=== PATIENT | male | born 1975 | race Caucasian/White ===

== ENCOUNTER 2023-04-10 14:08 | Emergency (ER) | payer OTHER, SELFPAY ==
[2023-04-10 14:13] VITALS: BP 156/106; PULSE 86; RESP 20; TEMP 98.2; O2SAT 98
[2023-04-10] MEDS ORDERED: Adacel Vial IM ONE ×2 (14:28→14:29)
--- NOTE | 2023-04-10 14:29 | ERPHSYRPT ---
- History of Present Illness Time Seen by Provider: 04/10/23 14:16 Source: patient Exam Limitations: no limitations Patient Subjective Stated Complaint: Pt states "I hit my arm with a grinding wheel." Triage Nursing Assessment: Pt presented alert and oriented X 3, skin pwd. PT had a shirt wrapped around his left forearm. PT has laceration approx 7 cm x 2 cm noted to left forearm. no bleeding at this time. Physician History: 48-year-old male [id number] presented in the ER with chief complaint of laceration distal third left anterior forearm while working at home with a grinding wheel. There was bleeding initially, started applying pressure and currently no active spurting or oozing. No difficulty movements at the wrist/fingers. No tingling or numbness in the fingers. Unsure about tetanus status. No injury anywhere else. Patient has 3.0 cm superficial laceration. No obvious tendon injury visible. Intact movements at wrist and fingers. Distal neurovascular well intact. Laceration is repaired. Recommended Tylenol/ibuprofen for symptomatic relief. Tetanus is updated. Discussed wound care in detail. Outpatient follow-up for reevaluation and suture removal. Timing/Duration: hour(s) (0.5), constant, sudden, improved Quality: painful Severity: mild, moderate Location: extremities Possible Causes: other Allergies/Adverse Reactions: No Known Drug Allergies Allergy (Verified 04/10/23 14:13) Home Medications: No Reportable Medications [No Reported Medications] 04/10/23 [History] Hx Tetanus, Diphtheria Vaccination/Date Given: No Hx Influenza Vaccination/Date Given: No Hx Pneumococcal Vaccination/Date Given: No Immunizations Up to Date: No Travel Risk - International Travel Have you traveled outside of the country in past 3 weeks: No - Coronavirus Screening Are you exhibiting any of the following symptoms?: No Close contact with a COVID-19 positive Pt in past 14-21 Days: No - Vaccine Status Have you recieved a Covid-19 vaccination: No - Review of Systems Constitutional: No Symptoms Eyes: No Symptoms Ears, Nose, & Throat: No Symptoms Respiratory: No Symptoms Cardiac: No Symptoms Musculoskeletal: Injury Skin: Skin Lesions Neurological: No Symptoms Endocrine: No Symptoms Hematologic/Lymphatic: No Symptoms Immunological/Allergic: No Symptoms - Past Medical History Pertinent Past Medical History: Yes Cardiac History: Hypertension - Past Surgical History Past Surgical History: No - Social History Smoking Status: Current every day smoker Exposure to second hand smoke: No Drug Use: none Patient Lives Alone: No - Nursing Vital Signs Nursing Vital Signs: Initial Vital Signs Temperature 98.2 F 04/10/23 14:09 Pulse Rate 86 04/10/23 14:09 Respiratory Rate 20 04/10/23 14:09 Blood Pressure 156/106 04/10/23 14:09 O2 Sat by Pulse Oximetry 98 04/10/23 14:09 Pain Scale Pain Intensity 0 - Physical Exam General Appearance: no apparent distress, alert Eye Exam: PERRL/EOMI Neck Exam: normal inspection, full range of motion Respiratory Exam: normal breath sounds, lungs clear Cardiovascular Exam: regular rate/rhythm, normal heart sounds Extremity Exam: normal range of motion, lacerations (3.0 cm horizontal laceration left distal third forearm. No active spurting or oozing. No obvious tendon injury. Distal neurovascular intact) Neurologic Exam: alert, oriented x 3, cooperative, functional director II-XII nml as tested, sensation nml, No motor deficits Skin Exam: normal color SpO2 Interpretation: normal SpO2: 98 O2 Delivery: Room Air Procedures - Laceration/Wound Repair Left Distal Volar Arm Time of Procedure: 14:30 Wound Location: Left, lower arm Wound Length (cm): 3.0 Wound's Depth, Shape: superficial, linear Wound Explored: clean Irrigated: Yes Hibiclens Prep: Yes Anesthesia: 1% Lidocaine Volume Anesthetic (ccs): 5 Wound Repaired With: sutures Suture Size/Type: 3-0, nylon Number of Sutures: 5 Layer Closure?: No Sterile Dressing Applied?: Yes Splint Applied?: No Ordered Tests: Medication Summary Discontinued Medications Generic Name Dose Route Start Last Admin Trade Name Paulq PRN Reason Stop Dose Admin Diphtheria/Tetanus/Acell Pertussis 0.5 ml 04/10/23 14:28 04/10/23 14:37 Tdap --Diph,Pertuss(Acell),Tet Vac/Pf 0.5 Ml Vial IM 04/10/23 14:29 0.5 ml .ONCE ONE Administration Diphtheria/Tetanus/Acell Pertussis Confirm 04/10/23 14:29 Tdap --Diph,Pertuss(Acell),Tet Vac/Pf 0.5 Ml Vial Administered 04/10/23 14:30 Dose 0.5 ml IM .STK-MED ONE Lidocaine HCl Confirm 04/10/23 14:33 Lidocaine Hcl 1% 20 Ml Mdv 20 Ml Ml Administered 04/10/23 14:34 Dose 1 ml .ROUTE .STK-MED ONE - Progress Progress: improved Progress Note: 04/10/23 14:29 48-year-old male [id number] presented in the ER with chief complaint of laceration distal third left anterior forearm while working at home with a grinding wheel. There was bleeding initially, started applying pressure and c urrently no active spurting or oozing. No difficulty movements at the wrist/fingers. No tingling or numbness in the fingers. Unsure about tetanus status. No injury anywhere else. Patient has 3.0 cm superficial laceration. No obvious tendon injury visible. Intact movements at wrist and fingers. Distal neurovascular well intact. Laceration is repaired. Recommended Tylenol/ibuprofen for symptomatic relief. Tetanus is updated. Discussed wound care in detail. Outpatient follow-up for reevaluation and suture removal. 04/10/23 15:13 Counseled pt/family regarding: diagnosis, need for follow-up - Departure Departure Disposition: Home Clinical Impression: Laceration of left forearm Condition: Stable Critical Care Time: No Referrals: DOCTOR,NO FAMILY [Primary Care Provider] - Follow up/PCP as directed MARISA CEDENO MD [ACTIVE STAFF] - Follow up with PCP 1 day Instructions: Laceration Repair With Stitches (DC) Additional Instructions: Take Tylenol/ibuprofen as needed. Intermittent ice application. Keep it clean and dry. Follow-up with primary care for reevaluation. Suture removal in 2 weeks. Return to ER for increasing pain swelling redness discharge/fever chills/difficulty movements of the wrist/fingers etc.
[2023-04-10] MEDS ORDERED: XYLOCAINE 1% HCL 20 ML MDV ONE (14:33)
== END 2023-04-10 15:16 | disposition home or self-care (01) ==
LOC: ED 14:08
DX: S51.812A Laceration without foreign body of left forearm, initial encounter (principal); W29.8XXA Contact with other powered hand tools and household machinery, initial encounter; I10 Essential (primary) hypertension; Z28.310 Unvaccinated for COVID-19; Z72.0 Tobacco use; Z23 Encounter for immunization
CPT/HCPCS: 12002; 90471; 90715; 99282